=== PATIENT | female | born 1935 | race Asian ===

== ENCOUNTER 2016-06-06 14:47 | Emergency (ER) | payer MEDICARE, MEDICAID ==
[~2016-06-06] VITALS: Ht 154.9 cm; Wt 43.1 kg
[~2016-06-06 14:47] MED LIST: Ketorolac 30mg Inj IV ONE; LORazepam Inj 2mg/ml 1ml IV ONE
--- NOTE | 2016-06-06 14:58 | Emergency Room Report ---
History of Present Illness General Chief Complaint: Dizziness Source: Patient, Family Member, EMS Present Illness HPI Patient presents with dizziness and nausea and dyspnea after taking her is tramadol. The medics were summoned. She is also complaining of neck pain and this is why she took tramadol. She has chronic neck pain. She states that she thought that it was so severe that it felt broken to her and that' s why they put a collar on. .She denies any weakness in her extremities. She denies any fevers. There is some chest pain that she feels. The neck pain is 10/10. The chest discomfort is burning in the lower chest and epigastric area. There is dizziness and dysphoria. No change in vision. No headache. Anxious. Paramedics gave zofran with some relief. No dysuria. Allergies: Coded Allergies: No Known Allergies (Unverified , 06/06/16) Patient History Past Medical History: see triage record Social History: Denies: alcohol use, drug use, smoking Social History Narrative Reviewed Nursing Documentation: PMH: Agreed, PSxH: Agreed Nursing Documentation-PMH Past Medical History: No History, Except For Hx Hypertension: Yes - Partial Knee surgery Hx Neurological Problems: Yes - Cervical misalignment Review of Systems All Other Systems: negative except mentioned in HPI Physical Exam Vital Signs Date Time Temp Pulse Resp B/P Pulse Ox O2 Delivery O2 Flow Rate FiO2 06/06/16 14:42 97.0 79 16 146/67 99 Room Air 06/06/16 15:00 2.0 Sp02 EP Interpretation: reviewed, normal General Appearance: well appearing, no apparent distress, GCS 15, mild distress Head: normocephalic, atraumatic Eyes: bilateral eye PERRL, bilateral eye normal inspection ENT: moist mucus membranes Neck: supple, no bony tend, limited range of motion - but almost full, other - C collar on Respiratory: chest non-tender, lungs clear, normal breath sounds Cardiovascular #1: regular rate, rhythm Cardiovascular #2: 2+ radial (R) Gastrointestinal: normal inspection, normal bowel sounds, non tender, no mass, non-distended Musculoskeletal: back normal, gait/station normal, normal range of motion Neurologic: alert, oriented x3, motor strength/tone normal, sensory intact, speech normal Psychiatric: anxious Skin: normal inspection, warm/dry Medical Decision Making Diagnostic Impression: Primary Impression: Adverse reaction to medication Additional Impression: Degenerative arthritis of cervical spine Qualified Codes: M47.812 - Spondylosis without myelopathy or radiculopathy, cervical region ER Course The patient presents with dizziness nausea and chest pain after taking her Tramadol. Differential includes adverse drug reaction, acute myocardial infarction, arrhythmia, gastroenteritis, gastritis amongst others. She does complain about neck pain is chronic but seems increased. Evaluation will be with EKG, labs, chest x-ray, CT of head and also neck. The patient be treated with is Ativan. She's somewhat better after receiving Zofran in the field. Labs unremarkable. CT neck with DJD. CT head normal. Some renal insufficiency. Improved with treatment with improvement in neck pain also. Patient stable for outpatient observation and treatment. Laboratory Tests Test 06/06/16 15:08 White Blood Count 6.5 K/UL (4.8-10.8) Red Blood Count 3.31 M/UL (4.20-5.40) L Hemoglobin 11.4 G/DL (12.0-16.0) L Hematocrit 31.6 % (37.0-47.0) L Mean Corpuscular Volume 95 FL (80-99) Mean Corpuscular Hemoglobin 34.5 PG (27.0-31.0) H Mean Corpuscular Hemoglobin Concent 36.2 G/DL (32.0-36.0) H Red Cell Distribution Width 11.6 % (11.6-14.8) Platelet Count 121 K/UL (150-450) L Mean Platelet Volume 7.3 FL (6.5-10.1) Neutrophils (%) (Auto) 74.0 % (45.0-75.0) Lymphocytes (%) (Auto) 18.1 % (20.0-45.0) L Monocytes (%) (Auto) 6.9 % (1.0-10.0) Eosinophils (%) (Auto) 0.2 % (0.0-3.0) Basophils (%) (Auto) 0.8 % (0.0-2.0) Prothrombin Time 11.0 SEC (9.30-11.50) Prothrombin Time INR 1.1 (0.9-1.1) PTT 27 SEC (23-33) Sodium Level 134 mEQ/L (135-145) L Potassium Level 3.8 mEQ/L (3.4-4.9) Chloride Level 93 mEQ/L (98-107) L Carbon Dioxide Level 22 mEQ/L (20-30) Anion Gap 19 (5-15) H Blood Urea Nitrogen 30 mg/dL (7-23) H Creatinine 1.3 mg/dL (0.5-0.9) H Estimate Glomerular Filtration Rate mL/min (>60) Glucose Level 141 mg/dL (74-106) H Calcium Level 10.3 mg/dL (8.6-10.2) H Total Bilirubin 0.5 mg/dL (0.0-1.2) Aspartate Amino Transferase (AST) 16 U/L (5-40) Alanine Aminotransferase (ALT) 9 U/L (3-33) Alkaline Phosphatase 49 U/L (35-104) Total Creatine Kinase 94 U/L (26-140) Troponin I < 0.30 ng/mL (<=0.30) Pro-B-Type Natriuretic Peptide 440 pg/mL (0-450) Total Protein 7.0 g/dL (6.6-8.7) Albumin 4.2 g/dL (3.5-5.2) Globulin 2.8 g/dL Albumin/Globulin Ratio 1.5 (1.0-2.7) EKG Diagnostic Results Rate: normal Rhythm: NSR ST Segments: no acute changes - right axis Rhythm Strip Diag. Results EP Interpretation: yes Rhythm: NSR, no PVC's, no ectopy CT/MRI/US Diagnostic Results CT/MRI/US Diagnostic Results #1: Imaging Test Ordered: head Impression nl brain, bones and ST CT/MRI/US Diagnostic Results #2: Imaging Test Ordered: c spine Impression diffuse DJD Last Vital Signs Date Time Temp Pulse Resp B/P Pulse Ox O2 Delivery O2 Flow Rate FiO2 06/06/16 18:06 68 15 122/53 98 Room Air 06/06/16 16:09 97.0 06/06/16 15:00 2.0 Status: improved Disposition: HOME, SELF-CARE Condition: Improved Scripts Ondansetron Odt* (ZOFRAN ODT*) 4 Mg Tab.rapdis 4 MG ORAL Q6H Y for Nausea & Vomiting, #8 TAB 0 Refills Prov: Jose Antonio Kyle M.D. 06/06/16 Jose Antonio Kyle M.D. Jun 06, 2016 14:58
[2016-06-06 15:00] VITALS: BP 150/62
[2016-06-06 15:36] LABS: ALANINE AMINOTRANSFERASE 9 U/L (3-33); ALBUMIN/GLOBULIN RATIO 1.5 (1.0-2.7); ANION GAP 19 (5-15); ASPARTATE AMINO TRANSFERASE 16 U/L (5-40); CALCIUM 10.3 mg/dL (8.6-10.2); CARBON DIOXIDE 22 mEQ/L (20-30); CHLORIDE 93 mEQ/L (98-107); CREATININE 1.3 mg/dL (0.5-0.9); HEMOLYSIS 11; POTASSIUM 3.8 mEQ/L (3.4-4.9); SODIUM 134 mEQ/L (135-145)
[2016-06-06 15:37] LABS: TROPONIN I < 0.30 ng/mL (<=0.30)
[2016-06-06 15:48] LABS: BASOPHILS % (AUTO) 0.8 % (0.0-2.0); EOSINOPHILS % (AUTO) 0.2 % (0.0-3.0); LYMPHOCYTES % (AUTO) 18.1 % (20.0-45.0); MEAN CORPUSCULAR HEMOGLOBIN 34.5 PG (27.0-31.0); MEAN CORPUSCULAR HGB CONC 36.2 G/DL (32.0-36.0); MEAN CORPUSCULAR VOLUME 95 FL (80-99); MEAN PLATELET VOLUME 7.3 FL (6.5-10.1); MONOCYTES % (AUTO) 6.9 % (1.0-10.0); PLATELET COUNT 121 K/UL (150-450); RED BLOOD COUNT 3.31 M/UL (4.20-5.40); RED CELL DISTRIBUTION WIDTH 11.6 % (11.6-14.8); WHITE BLOOD COUNT 6.5 K/UL (4.8-10.8)
[2016-06-06 15:55] LABS: INR 1.1 (0.9-1.1)
[2016-06-06] MEDS ORDERED: METOPROLOL SUCC25 MG ORAL (16:08)
[2016-06-06] MEDS ORDERED: AMLODIPINE BESYL5 MG ORAL (16:08)
[2016-06-06] MEDS ORDERED: DICLOFENAC SOD100 G1 TP (16:08)
[2016-06-06] MEDS ORDERED: CYCLOBENZAPRINE10 MG ORAL (16:08)
[2016-06-06] MEDS ORDERED: ARTIFICIAL TEAR15 M6 OP (16:08)
[2016-06-06] MEDS ORDERED: LOSARTAN-HCTZ1 EACH ORAL (16:08)
[2016-06-06 16:10] VITALS: BP 117/56
--- NOTE | 2016-06-06 16:12 | Diagnostic Imaging Report ---
Indication: PAIN Technique: Spiral acquisitions obtained through the cervical spine. No IV contrast utilized. Multiplanar reconstructions were generated. Total dose length product 183 mGycm. CTDIvol(s) none mGy. Dose reduction achieved using automated exposure control Comparison: Findings: There is slight anterior offset of C4 on C5, probably due to facet degeneration. The remainder of the bony alignment is normal. No acute fractures. No dislocations. Vertebral body heights are preserved. There is marked degenerative irregularity of the left lateral C1-C2 joint. At C2-3, no significant disc bulge or protrusion, spinal stenosis, or neural frontal stenosis. No significant disc narrowing. There is minimal facet degeneration bilaterally. At C3-4, there is mild narrowing of the left neural. There is mild broad-based central posterior disc protrusion which does not significantly compromise the spinal canal. The disc space is preserved. At C4-5, there is mild left neural foraminal stenosis due to uncinate hypertrophy. There is left facet degeneration with ankylosis of the facet joint. The disc space is preserved. No significant disc bulge or protrusion or spinal stenosis. At C5-6, there is moderate degenerative disc space narrowing. No significant disc bulge or protrusion or spinal stenosis. There is moderate narrowing of the bilateral neural foramina. At C6-7, there is moderate to severe right, moderate left neural foraminal stenosis. No significant disc bulge or protrusion, or spinal stenosis. At C7-T1, no significant disc old or protrusion, spinal stenosis, or neural foraminal stenosis. The included extraspinal soft tissues are unremarkable. Impression: No acute bony trauma Degenerative changes, as detailed above The CT scanner at [facility] is accredited by the [employer] and the scans are performed using protocols designed to limit radiation exposure to as low as reasonably achievable to attain images of sufficient resolution adequate for diagnostic evaluation.
--- NOTE | 2016-06-06 16:22 | Diagnostic Imaging Report ---
Indication: PAIN Technique: spiral acquisitions obtained through the brain. Angled axial and coronal 5 x 5 mm slices were reconstructed. No IV contrast utilized. Radiation dose was minimized using automated exposure control Total dose length product mGycm. CTDIvol(s) 70 mGy Comparison: none FINDINGS: No acute hemorrhage or edema. No mass effect or midline shift. There is age-related enlargement of the ventricles and extra axial CSF spaces. There is extensive periventricular deep white matter ischemic change. Normal rocha-white differentiation. Visualized orbits are unremarkable. There is minimal right maxillary sinus disease.. Intact calvarium. IMPRESSION: Chronic and age-related changes. Negative for acute intracranial bleed or mass effect The CT scanner at [facility] is accredited by the [employer] and the scans are performed using protocols designed to limit radiation exposure to as low as reasonably achievable to attain images of sufficient resolution adequate for diagnostic evaluation
[2016-06-06] MEDS ORDERED: ZOFRAN ODT4 MG ORAL (17:27)
[2016-06-06 18:06] VITALS: BP 122/53
--- NOTE | 2016-06-07 08:47 | Diagnostic Imaging Report ---
Indication: Chest pain Technique: One view of the chest Comparison: none Findings: There is evidence of right upper lung scarring and volume loss, with upward retraction of the andrzej. Lungs are somewhat hyperinflated. No acute infiltrates, effusions or congestion. Bilateral basilar nipple shadows are noted. The heart size is upper limits normal. Aorta is tortuous and ectatic. Lung apex as well, as well as bilateral apical pleural scarring. Impression: . Extensive chronic changes, as described, including upper lung pleural and parenchymal scarring, likely COPD changes. No acute process
--- NOTE | 2016-06-08 13:31 | Cardiology Report ---
APPROVED REPORT EKG Measurement Heart [id number] CO [id number] [id number] Normal sinus rhythm Rightward axis Borderline ECG
== END 2016-06-06 18:08 | disposition home or self-care (01) ==
LOC: EDBD 14:47 → EMR 15:06
DX: R42 Dizziness and giddiness (principal); T40.4X5A Adverse effect of other synthetic narcotics, initial encounter; Y92.89 Other specified places as the place of occurrence of the external cause; R07.9 Chest pain, unspecified; R11.0 Nausea; G89.29 Other chronic pain; M50.31 Other cervical disc degeneration, high cervical region; M48.02 Spinal stenosis, cervical region; R49.0 Dysphonia; I10 Essential (primary) hypertension
CPT/HCPCS: 36415; 70450; 71010; 72125; 80053; 82550; 83880; 84484; 85025; 85610; 85730; 93005; 96374; 96375; 99284; J1885; J2405; 96372